=== PATIENT | male | born 1955 | race Caucasian/White ===

== ENCOUNTER 2018-07-06 09:46 | Emergency (ER) | payer MEDICARE, SELFPAY ==
[2018-07-06 09:56] VITALS: BP 152/81; PULSE 80; RESP 16; TEMP 36.9; O2SAT 99
[2018-07-06 10:16] LABS: Bilirubin Negative (Negative); Blood Negative (Negative); Clarity Clear; Glucose Negative (Negative); Ketones Negative (Negative); Leukocyte Esterase Negative (Negative); Nitrite Negative (Negative); Specific Gravity 1.015 (1.005-1.025); Urobilinogen 0.2 EU/dL (Up TO 0.2)
[2018-07-06 10:27] LABS: Bacteria Rare HPF (Negative); Epithelial Cells Negative HPF (Negative); Other Cells Negative (Negative); RBC 0-2 (0-2); WBC Negative HPF (0-5)
[2018-07-06 10:28] LABS: C & S Indicated? No; Casts Negative LPF (Negative); Crystals Negative HPF (Negative); Mucus Negative (Negative)
--- NOTE | 2018-07-06 10:55 | ED.GENADUL_ITS ---
Discharge Plan Disposition Patient Disposition: HOME Condition: Stable Discharge Details Chief Complaint: Nk/Back Pain Clinical Impression: Lumbar strain Primary Care Provider: Lena Donovan ED Provider: Hieu Brooke Home Meds and New Rx's Prescriptions: Continue nicotine 1 EACH patch 24 hour 1 ea Transdermal RF: 0 lisinopril 20 MG tablet 20 mg PO DAILY RF: 0 aspirin [Aspirin Low-Strength] 81 MG tablet,chewable 81 mg PO DAILY RF: 0 fenofibrate 54 MG tablet 54 mg PO DAILY RF: 0 vitamin U74-qpghl acid 500-400 mcg Tablet 1 tab PO DAILY RF: 0 Discharge Instructions Instructions: Low Back Strain (ED) Additional Instructions: you can take 1000mg tylenol and 600mg ibuprofen every 6 hours for pain as needed return to the emergency department if you have inability to urinate, high fevers or abdominal pain or weakness follow up with your primary care provider within 1-2 weeks especially if symptoms are not improving Discharge Data Discharge Physician: Hieu Brooke Medical Decision Making MDM Narrative Medical decision making narrative: 63 yo male comes in with 3 days of lower back pain. 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 Denies weakness, fevers, chills, ivdu, abd pain, difficulty urinating. Based on his exam today and history do not feel he is likely to have cauda equina or sea or other spinal cord pathology requiring emergent MRI. No abdominal pain and normal distal vascular exam so doubt emergent intrabdominal process such as appendicitis. I suspect the patient has a lumbar strain, less likely disc herniation. Will provide dosing for ibuprofen and tylenol and advised f/u with pcp and return precautions given Differential Diagnosis back strain, muscle spasm, disc herniation Lab Data Lab Results 07/06/18 Range/Units 10:08 Urine Color Yellow (Yellow) Urine Clarity Clear Urine pH 6.0 (5-8) Ur Specific [place] 1.015 (1.005-1.025) Urine Protein 100 H (Negative) mg/dL Urine Ketones Negative (Negative) mg/dL Urine Blood Negative (Negative) Urine Nitrite Negative (Negative) Urine Bilirubin Negative (Negative) Urine Urobilinogen 0.2 (Up TO 0.2) EU/dL Ur Leukocyte Esterase Negative (Negative) Urine RBC 0-2 (0-2) Urine WBC Negative (0-5) HPF Ur Epithelial Cells Negative (Negative) HPF Urine Crystals Negative (Negative) HPF Urine Bacteria Rare (Negative) HPF Urine Casts Negative (Negative) LPF Urine Mucus Negative (Negative) Urine Other Negative (Negative) Ur Culture Indicated? No Urine Glucose Negative (Negative) mg/dL HPI - General Adult General Mode of arrival: ambulatory . Date/Time Provider Initiated Documentation: 07/06/18 10:15 . Limitations to Documentation: no limitations . Information obtained by: patient . History of Present Illness 63 year old M presents to the emergency department with the chief complaint of back pain, described as moderate, with intensity rated at 4. Quality is described as aching, and is localized to the back. Patient reports no radiation. Patient started experiencing this day(s) (3) and it has been constant. No relieving factors improve symptom(s), No exacerbating factors reported . Patient notes no other symptoms.. Patient did receive the following treatments prior to arrival, none Related Data Home Medications Medication Instructions Recorded Confirmed aspirin [Aspirin Low-Strength] 81 mg PO DAILY tab-cap 12/08/15 07/06/18 fenofibrate 54 mg PO DAILY tab-cap 12/08/15 07/06/18 lisinopril 20 mg PO DAILY tab-cap 12/08/15 07/06/18 nicotine 1 ea TRANSDERMAL script 12/08/15 vitamin X70-vsoyd acid 1 tab PO DAILY 07/06/18 07/06/18 Allergies Allergy/AdvReac Type Severity Reaction Status Date / Time lovastatin Allergy Other (See Unverified 07/06/18 09:58 Comment) morphine Allergy aggitation Unverified 07/06/18 09:57 General Stated Complaint: Nk/Back Pain ALEX: 4 Review of Systems Review of Systems All systems reviewed & are unremarkable except as noted in HPI and below Constitutional Denies chills, Denies fever(s) and Denies weakness Eyes Patient Denies loss of vision ENT Denies change in voice Cardiovascular Denies chest pain and Denies dyspnea Respiratory Denies dyspnea Gastrointestinal Denies abdominal pain, Denies nausea and Denies vomiting Genitourinary Denies dysuria Musculoskeletal Denies joint swelling Integumentary/Breasts Denies rash Neurologic Denies loss of vision and Denies weakness Psychiatric Denies depression Endocrine Denies cold intolerance and Denies heat intolerance Allergic/Immunologic Reports urticaria [facility] Social History Smoking/Tobacco Use Status: Current every day Exam Const General: no acute distress Orientation: alert HENMT Head: normal to inspection Ears: external ears normal General nose exam: external nose normal Mouth: moist mucous membranes Eyes General: appearance normal, both eyes and all related structures Neck Neck: normal visual inspection Resp Effort & Inspection: normal respiratory effort and able to speak in complete sentences Cardio Rate: regular rate GI Palpation: soft and nontender Back/Spine/Pelvis Back: no CVA tenderness and other (pain bilaterally in the lower lumbar region, full rom of the back) Skin General skin exam: no rashes or lesions noted Neuro General: alert, oriented x3 and other (no saddle anesthesia, 5/5 motor in flexion and extension in both legs in all muscle groups, 2+ dp/pt pulses, normal gait) Extrem General: normal to inspection Psych Mental Status: mental status grossly normal Course Vital Signs Temperature 36.9 C 07/06/18 09:56 Pulse 80 07/06/18 09:56 Respiratory Rate 16 07/06/18 09:56 Blood Pressure 152/81 H 07/06/18 09:56 Pulse Oximetry 99 07/06/18 09:56 Temperature 36.9 C 07/06/18 09:56 Pulse 80 07/06/18 09:56 Respiratory Rate 16 07/06/18 09:56 Blood Pressure 152/81 H 07/06/18 09:56 Pulse Oximetry 99 07/06/18 09:56 Lab/Test Results Lab/Test Results: Laboratory Tests 07/06/18 10:08 Urine Color Yellow Urine Clarity Clear Urine pH 6.0 Ur Specific [place] 1.015 Urine Protein 100 H Urine Ketones Negative Urine Blood Negative Urine Nitrite Negative Urine Bilirubin Negative Urine Urobilinogen 0.2 Ur Leukocyte Esterase Negative Urine RBC 0-2 Urine WBC Negative Ur Epithelial Cells Negative Urine Crystals Negative Urine Bacteria Rare Urine Casts Negative Urine Mucus Negative Urine Other Negative Ur Culture Indicated? No Urine Glucose Negative
[2018-07-06 10:59] VITALS: BP 152/81; PULSE 80; RESP 16; TEMP 36.9; O2SAT 99
== END 2018-07-06 11:02 | disposition home or self-care (01) ==
PROVIDERS: Emergency Provider Emergency Medicine; PCP Physician Assistant Medical
DX: S39.012A Strain of muscle, fascia and tendon of lower back, initial encounter (principal); X50.0XXA Overexertion from strenuous movement or load, initial encounter
CPT/HCPCS: 99283; 81003; 81015; 99282

== ENCOUNTER 2018-07-17 07:35 | Emergency (ER) | payer MEDICARE, SELFPAY ==
[2018-07-17 07:40] VITALS: BP 149/88; PULSE 92; RESP 16; TEMP 36.6; O2SAT 99
--- NOTE | 2018-07-17 08:22 | DI.CT_ITS ---
SYMPTOM/DIAGNOSIS: ABD AND BACK PAIN, CONSTIPATION ABDOMEN AND PELVIC CT: CT scan of the abdomen and pelvis was performed following the uneventful administration of intravenous and oral contrast material. Comparison is made with 08/17/10. No acute abnormality is seen in the lung bases. The liver is normal in size. No evidence of a hepatic mass is seen. The portal and superior mesenteric veins are patent. The gallbladder is negative. No biliary ductal dilatation is present. The pancreas is unremarkable as are the spleen and adrenal glands. The kidneys show normal and symmetric enhancement. No evidence of a solid renal mass or obstruction is seen. No ureterolithiasis is present. The urinary bladder is intact. Reproductive organs are unremarkable. The abdominal aorta is of normal caliber. No aneurysmal dilatation is seen. No significant abdominal or pelvic adenopathy, ascites or pneumoperitoneum is present. Note is made of bilateral fat containing umbilical inguinal hernias. There is a moderate sized fat containing umbilical hernia and a small fat containing supraumbilical hernia in the midline. The bowel shows no evidence of obstruction or inflammation or infection. There is a normal appendix present. There are degenerative changes seen in the spine. No evidence of an acute fracture or dislocation. There is moderately severe neural foraminal stenosis bilaterally at L 4-5 on the left and L 3-4. More mild to moderate neural foraminal stenosis is seen on the right at L 2-3 and L 3-4. IMPRESSION: 1. No evidence of an acute abdomen, acute fracture or dislocation. 2. 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 The findings are most marked at the L 2-3, L 3-4 and L 4-5 disc levels. The findings were discussed with the emergency department on the date of the examination.
[2018-07-17 08:46] LABS: Abs Immature Grans 0.04 k/cumm (0.0-0.09); Absolute Basophil Count 0.03 k/cumm (0.0-0.2); Absolute Eosinophil Count 0.19 k/cumm (0.0-0.7); Absolute Lymphocyte Count 1.68 k/cumm (1.2-3.4); Basophils % 0.3; Eosinophils % 1.7; HCT 51.2 % (40.0-50.0); HGB 17.5 g/dL (13.5-17.5); Immature Grans % 0.4; Lymphocytes % 14.7; Mean Corp. HGB Concentration 34.2 g/dL (32.0-36.0); Mean Corpuscular Volume 87.7 fL (80-95); Mean Platelet Volume 9.9 fL (8.0-11.0); Neutrophils % 75.9; Platelet Count 383 x1000/uL (130-400); RBC 5.84 m/cumm (4.50-6.00); RBC Distribution Width 13.3 % (11.8-14.1)
[2018-07-17 08:48] LABS: Absolute Neutrophil Count 8.65 k/cumm (1.2-6.7)
[2018-07-17] MEDS: Lactated Ringers 1,000 ML 1000 ML IV (08:48)
[2018-07-17 09:24] LABS: ALT 23 U/L (12-78); AST 21 U/L (15-37); Albumin 4.4 g/dL (3.4-5.0); Alkaline Phosphatase 67 U/L (46-116); Anion Gap 5.9 mmol/L (3-11); BUN 17 mg/dL (7-18); Bilirubin, Total 0.6 mg/dL (0.2-1.0); CO2 30.1 mmol/L (21.0-32.0); CREATININE 1.32 mg/dL (0.70-1.30); Calcium 9.7 mg/dL (8.5-10.1); Chloride 96 mmol/L (98-107); Estimated GFR 54.78 (mL/min/1.73m2); Glucose 109 mg/dL (70-100); Sodium 132 mmol/L (136-145)
[2018-07-17] MEDS: Omnipaque 350 MG/ML 100 ML BTL IV (09:37)
--- NOTE | 2018-07-17 10:10 | W.ED.GENAD ---
Discharge Plan Disposition Patient Disposition: HOME Discharge Details Chief Complaint: GenMedical Clinical Impression: Constipation, Low back pain Primary Care Provider: Lena Donovan ED Provider: Robb Ayala Home Meds and New Rx's Prescriptions: New mineral oil [Fleet Mineral Oil] enema 118 ml [place] ONCE Qty: 135 RF: 2 lidocaine 5 % adhesive patch,medicated 1 patch TP DAILY PRN (Reason: back pain) Qty: 15 RF: 0 Continue lisinopril 20 MG tablet 20 mg PO DAILY RF: 0 aspirin [Aspirin Low-Strength] 81 MG tablet,chewable 81 mg PO DAILY RF: 0 fenofibrate 54 MG tablet 54 mg PO DAILY RF: 0 metoprolol tartrate 25 mg Tablet 12.5 mg PO DAILY RF: 0 vitamin E34-lgrix acid 500-400 mcg Tablet 1 tab PO DAILY RF: 0 Discharge Instructions Instructions: Constipation (ED), Low Back Strain (ED) Additional Instructions: Use enema as prescribed. Take Tylenol and ibuprofen for discomfort --does according to labels. Use a squatty potty for bowel movements. Please contact your primary care physician to arrange follow-up. Call today. Return to the ER for any worsening or new concerning symptoms. Referrals: Lena Donovan PA [Primary Care Provider] - Medical Decision Making 10:25 --63-year-old male presents with chief complaint of bilateral low back pain and constipation. Concern for potential surgical process including bowel obstruction versus AAA. CT the abdomen pelvis interpreted by radiology: Moderate stool with no stool in his rectal vault, no obstruction, degenerative changes of the lumbar spine with some neuroforaminal stenosis, no acute findings . Labs were reviewed and are nondiagnostic. 10:40 --patient reassessed. We discussed diagnostic results. Will give Tylenol and lidocaine patch for low back pain. Usual and customary discharge instructions were provided the patient. Patient understands importance of timely follow-up with his primary care physician and I encouraged him to call today to arrange this follow-up. Patient knows that he should return immediately to the ER should he have any worsening or new concerning symptoms HPI General Mode of arrival: ambulatory. Date/Time Provider Initiated Documentation: 07/17/18 08:08. Limitations to Documentation: no limitations. Information obtained by: patient. HPI Narrative: 63-year-old male with history of coronary artery disease status post CABG, presents with chief complaint of back pain. Patient notes bilateral lower back pain for the past 3-4 days. Patient attributes this pain to constipation. Patient notes he does have some discomfort in his abdomen but most of his discomfort is localized in his back. He has not had a regular bowel movement for some time. He has been using stool softeners suppository without complete relief. Pain is severe. Described as ache and gassy. Of note patient was seen here on 07/06/2018 for similar presentation and thought possibly to have low back strain. Related Data Home Medications Medication Instructions Recorded Confirmed aspirin [Aspirin Low-Strength] 81 mg PO DAILY tab-cap 12/08/15 07/17/18 fenofibrate 54 mg PO DAILY tab-cap 12/08/15 07/17/18 lisinopril 20 mg PO DAILY tab-cap 12/08/15 07/17/18 vitamin S59-ywtch acid 1 tab PO DAILY 07/06/18 07/17/18 metoprolol tartrate 12.5 mg PO DAILY 07/17/18 07/17/18 Previous Rx's Medication Instructions Recorded lidocaine 1 patch TP DAILY PRN #15 each 07/17/18 mineral oil [Fleet Mineral Oil 118 ml [place] ONCE #135 ml 07/17/18 enema] Allergies Allergy/AdvReac Type Severity Reaction Status Date / Time lovastatin Allergy Other (See Unverified 07/06/18 09:58 Comment) morphine Allergy aggitation Unverified 07/06/18 09:57 General Stated Complaint: GenMedical ALEX: 3 Review of Systems Review of Systems All systems reviewed & are unremarkable except as noted in HPI and below Cardiovascular Reports system reviewed and no additional complaints, except as docu Respiratory Reports system reviewed and no additional complaints, except as docu Gastrointestinal Reports as per HPI [facility] Medical History Coronary artery disease (Chronic) Social History Smoking/Tobacco Use Status: Current every day Exam Const General: cooperative, comfortable, no acute distress and other (Uncomfortable appearing) HENMT Head: normocephalic and atraumatic Mouth: moist mucous membranes Eyes Conjunctivae: normal conjunctivae Sclera: normal sclerae EOM: EOM intact bilaterally Neck Neck: trachea midline and supple Resp Auscultation: clear to auscultation bilaterally, no rales, no rhonchi and no wheezes Cardio Jugular venous pressure: no JVD Rate: regular rate and not tachycardic Rhythm: regular rhythm GI Palpation: soft, not firm, no guarding, no masses, not rigid and nontender Skin General skin exam: no rashes or lesions noted Neuro General: alert, awake, oriented x3 and tone normal Extrem General: no edema Psych Appearance: grossly normal Mental Status: mental status grossly normal Speech and Movement: speech and movement normal Course Vital Signs Temperature 36.6 C 07/17/18 07:40 Pulse 92 H 07/17/18 07:40 Respiratory Rate 16 07/17/18 07:40 Blood Pressure 149/88 H 07/17/18 07:40 Pulse Oximetry 99 07/17/18 07:40 Temperature 36.6 C 07/17/18 07:40 Pulse 92 H 07/17/18 07:40 Respiratory Rate 16 07/17/18 07:40 Blood Pressure 149/88 H 07/17/18 07:40 Pulse Oximetry 99 07/17/18 07:40 Lab/Test Results Lab/Test Results: Laboratory Tests 07/17/18 07/17/18 07/17/18 08:30 08:30 09:05 WBC 11.40 H RBC 5.84 Hgb 17.5 Hct 51.2 H MCV 87.7 MCH 30.0 MCHC 34.2 RDW 13.3 Plt Count 383 MPV 9.9 Immature Gran % 0.4 Neutrophils % 75.9 Lymphocytes % 14.7 Monocytes % 7.0 Eosinophils % 1.7 Basophils % 0.3 Absolute Neutrophils 8.65 H Absolute Lymphocytes 1.68 Absolute Monocytes 0.80 H Absolute Eosinophils 0.19 Absolute Basophils 0.03 Sodium Cancelled 132 L Potassium Cancelled 5.0 Chloride Cancelled 96 L Carbon Dioxide Cancelled 30.1 Anion Gap Cancelled 5.9 BUN Cancelled 17 Creatinine Cancelled 1.32 H Estimated GFR/1.73 m2 Cancelled 54.78 Glucose Cancelled 109 H Calcium Cancelled 9.7 Total Bilirubin Cancelled 0.6 AST Cancelled 21 ALT Cancelled 23 Alkaline Phosphatase Cancelled 67 Total Protein Cancelled 8.0 Albumin Cancelled 4.4
--- NOTE | 2018-07-17 10:26 | ED.GENADUL_ITS ---
Discharge Plan Disposition Patient Disposition: HOME Discharge Details Chief Complaint: GenMedical Clinical Impression: Constipation, Low back pain Primary Care Provider: Lena Donovan ED Provider: Robb Ayala Home Meds and New Rx's Prescriptions: New mineral oil [Fleet Mineral Oil] enema 118 ml [place] ONCE Qty: 135 RF: 2 lidocaine 5 % adhesive patch,medicated 1 patch TP DAILY PRN (Reason: back pain) Qty: 15 RF: 0 Continue lisinopril 20 MG tablet 20 mg PO DAILY RF: 0 aspirin [Aspirin Low-Strength] 81 MG tablet,chewable 81 mg PO DAILY RF: 0 fenofibrate 54 MG tablet 54 mg PO DAILY RF: 0 metoprolol tartrate 25 mg Tablet 12.5 mg PO DAILY RF: 0 vitamin F73-dqefw acid 500-400 mcg Tablet 1 tab PO DAILY RF: 0 Discharge Instructions Instructions: Constipation (ED), Low Back Strain (ED) Additional Instructions: Use enema as prescribed. Take Tylenol and ibuprofen for discomfort --does according to labels. Use a squatty potty for bowel movements. Please contact your primary care physician to arrange follow-up. Call today. Return to the ER for any worsening or new concerning symptoms. Referrals: Lena Donovan PA [Primary Care Provider] - Medical Decision Making 10:25 --63-year-old male presents with chief complaint of bilateral low back pain and constipation. Concern for potential surgical process including bowel obstruction versus AAA. CT the abdomen pelvis interpreted by radiology: Moderate stool with no stool in his rectal vault, no obstruction, degenerative changes of the lumbar spine with some neuroforaminal stenosis, no acute findings . Labs were reviewed and are nondiagnostic. 10:40 --patient reassessed. We discussed diagnostic results. Will give Tylenol and lidocaine patch for low back pain. Usual and customary discharge instructions were provided the patient. Patient understands importance of timely follow-up with his primary care physician and I encouraged him to call today to arrange this follow-up. Patient knows that he should return immediately to the ER should he have any worsening or new concerning symptoms HPI General Mode of arrival: ambulatory . Date/Time Provider Initiated Documentation: 07/17/18 08:08 . Limitations to Documentation: no limitations . Information obtained by: patient . HPI Narrative: 63-year-old male with history of coronary artery disease status post CABG, presents with chief complaint of back pain. Patient notes bilateral lower back pain for the past 3-4 days. Patient attributes this pain to constipation. Patient notes he does have some discomfort in his abdomen but most of his discomfort is localized in his back. He has not had a regular bowel movement for some time. He has been using stool softeners suppository without complete relief. Pain is severe. Described as ache and gassy. Of note patient was seen here on 07/06/2018 for similar presentation and thought possibly to have low back strain. Related Data Home Medications Medication Instructions Recorded Confirmed aspirin [Aspirin Low-Strength] 81 mg PO DAILY tab-cap 12/08/15 07/17/18 fenofibrate 54 mg PO DAILY tab-cap 12/08/15 07/17/18 lisinopril 20 mg PO DAILY tab-cap 12/08/15 07/17/18 vitamin K04-aemdc acid 1 tab PO DAILY 07/06/18 07/17/18 metoprolol tartrate 12.5 mg PO DAILY 07/17/18 07/17/18 Previous Rx's Medication Instructions Recorded lidocaine 1 patch TP DAILY PRN #15 each 07/17/18 mineral oil [Fleet Mineral Oil 118 ml [place] ONCE #135 ml 07/17/18 enema] Allergies Allergy/AdvReac Type Severity Reaction Status Date / Time lovastatin Allergy Other (See Unverified 07/06/18 09:58 Comment) morphine Allergy aggitation Unverified 07/06/18 09:57 General Stated Complaint: GenMedical ALEX: 3 Review of Systems Review of Systems All systems reviewed & are unremarkable except as noted in HPI and below Cardiovascular Reports system reviewed and no additional complaints, except as docu Respiratory Reports system reviewed and no additional complaints, except as docu Gastrointestinal Reports as per HPI [facility] Medical History Coronary artery disease (Chronic) Social History Smoking/Tobacco Use Status: Current every day Exam Const General: cooperative, comfortable, no acute distress and other (Uncomfortable appearing) HENMT Head: normocephalic and atraumatic Mouth: moist mucous membranes Eyes Conjunctivae: normal conjunctivae Sclera: normal sclerae EOM: EOM intact bilaterally Neck Neck: trachea midline and supple Resp Auscultation: clear to auscultation bilaterally, no rales, no rhonchi and no wheezes Cardio Jugular venous pressure: no JVD Rate: regular rate and not tachycardic Rhythm: regular rhythm GI Palpation: soft, not firm, no guarding, no masses, not rigid and nontender Skin General skin exam: no rashes or lesions noted Neuro General: alert, awake, oriented x3 and tone normal Extrem General: no edema Psych Appearance: grossly normal Mental Status: mental status grossly normal Speech and Movement: speech and movement normal Course Vital Signs Temperature 36.6 C 07/17/18 07:40 Pulse 92 H 07/17/18 07:40 Respiratory Rate 16 07/17/18 07:40 Blood Pressure 149/88 H 07/17/18 07:40 Pulse Oximetry 99 07/17/18 07:40 Temperature 36.6 C 07/17/18 07:40 Pulse 92 H 07/17/18 07:40 Respiratory Rate 16 07/17/18 07:40 Blood Pressure 149/88 H 07/17/18 07:40 Pulse Oximetry 99 07/17/18 07:40 Lab/Test Results Lab/Test Results: Laboratory Tests 07/17/18 07/17/18 07/17/18 08:30 08:30 09:05 WBC 11.40 H RBC 5.84 Hgb 17.5 Hct 51.2 H MCV 87.7 MCH 30.0 MCHC 34.2 RDW 13.3 Plt Count 383 MPV 9.9 Immature Gran % 0.4 Neutrophils % 75.9 Lymphocytes % 14.7 Monocytes % 7.0 Eosinophils % 1.7 Basophils % 0.3 Absolute Neutrophils 8.65 H Absolute Lymphocytes 1.68 Absolute Monocytes 0.80 H Absolute Eosinophils 0.19 Absolute Basophils 0.03 Sodium Cancelled 132 L Potassium Cancelled 5.0 Chloride Cancelled 96 L Carbon Dioxide Cancelled 30.1 Anion Gap Cancelled 5.9 BUN Cancelled 17 Creatinine Cancelled 1.32 H Estimated GFR/1.73 m2 Cancelled 54.78 Glucose Cancelled 109 H Calcium Cancelled 9.7 Total Bilirubin Cancelled 0.6 AST Cancelled 21 ALT Cancelled 23 Alkaline Phosphatase Cancelled 67 Total Protein Cancelled 8.0 Albumin Cancelled 4.4
[2018-07-17 10:29] VITALS: BP 177/90; PULSE 79; RESP 17; TEMP 36.4; O2SAT 100
[2018-07-17] MEDS: Acetaminophen 325 MG TAB 650 MG PO (11:02)
[2018-07-17] MEDS: Lidocaine 5% Patch 1 PATCH (11:03)
== END 2018-07-17 11:03 | disposition home or self-care (01) ==
PROVIDERS: Emergency Provider Student in an Organized Health Care Education/Training Program; PCP Physician Assistant Medical
DX: K59.00 Constipation, unspecified (principal); M54.5 Low back pain; I10 Essential (primary) hypertension
CPT/HCPCS: 36415; 80053; 96360; 99284; 74177; 85025; J3490

== ENCOUNTER 2019-07-28 09:52 | Outpatient (REF) | payer MEDICARE, SELFPAY ==
[2019-07-28 20:32] LABS: ALT 24 U/L (16-63); AST 25 U/L (15-37); Albumin 3.8 g/dL (3.4-5.0); Alkaline Phosphatase 72 U/L (46-116); Anion Gap 11.1 mmol/L (3-11); BUN 20 mg/dL (7-18); Bilirubin, Total 0.3 mg/dL (0.2-1.0); CO2 26.9 mmol/L (21.0-32.0); Calcium 9.4 mg/dL (8.5-10.1); Chloride 98 mmol/L (98-107); Estimated GFR 51.02 (mL/min/1.73m2); Glucose 100 mg/dL (70-100); HDL Cholesterol 54 mg/dL (40-60); LDL CHOLESTEROL 152 mg/dL (<100); Potassium 4.8 mmol/L (3.5-5.1); Sodium 136 mmol/L (136-145)
[2019-07-28 21:00] LABS: Creatine Kinase 156 U/L (39-308)
== END 2019-07-28 10:12 ==
LOC: NCHCO 09:52
PROVIDERS: PCP Nurse Practitioner Family; Visit Provider Nurse Practitioner Family
DX: I10 Essential (primary) hypertension (principal); E78.00 Pure hypercholesterolemia, unspecified; I73.9 Peripheral vascular disease, unspecified; F17.210 Nicotine dependence, cigarettes, uncomplicated; Z95.1 Presence of aortocoronary bypass graft
CPT/HCPCS: 80053; 82550; 83721; 83718

== ENCOUNTER 2019-11-15 09:35 | Outpatient (REF) | payer MEDICARE, SELFPAY ==
[2019-11-15 22:01] LABS: Calculated LDL 106 mg/dL; Cholesterol 175 mg/dL (<200); HDL Cholesterol 58 mg/dL (40-60); Triglyceride 59 mg/dL (<150)
== END 2019-11-15 09:55 ==
LOC: NCHCN 09:35
PROVIDERS: PCP Nurse Practitioner Family; Visit Provider Nurse Practitioner Family
DX: I70.90 Unspecified atherosclerosis (principal)
CPT/HCPCS: 80061

== ENCOUNTER 2020-05-08 00:35 | Outpatient (CLI) | payer MEDICARE, SELFPAY ==
--- NOTE | 2020-05-08 | DI.CTLCSR_ITS ---
EXAM: CT CHEST LUNG CANCER SCREEN CLINICAL HISTORY: The patient reportedly has a History of Smoking 30 pack years and presently smokes or has quit the past 15 years. TECHNIQUE: Imaging Protocol: Axial computed tomography images with coronal and sagittal reformatted images were created and reviewed COMPARISON: CT CHEST WITH CONTRAST from 12/30/2017 FINDINGS: Tracheobronchial tree: Patent where visualized. Mediastinum and Janice: No dominant adenopathy or fluid collection. Pulmonary parenchyma: No consolidation or dominant measurable mass. No architectural distortion. Lung Nodules: None. Pleura: No effusion or pneumothorax. Heart: The heart is not dilated. Coronary artery calcifications and/or vascular stents are present. Pericardial effusion. Aorta: Thoracic aorta non-dilated. Upper abdomen: Unremarkable. Bones: Sternal wires are in place. Degenerative changes are seen in the spine. Old right rib fractu res are present. Soft Tissues: Unremarkable. IMPRESSION: No pulmonary nodules. Lung RADS Cat 1 - Negative: No nodules and definitely benign nodules Lung-RADS 1.0 CATEGORIES: Category 0 - Prior chest CT exam(s) being located for comparison. Category 1 - Annual screening in 12 months. No nodules or definitely benign nodules. Category 2 - Annual screening in 12 months. Benign appearance. Nodules with low likelihood of becomin g active cancer. Category 3 - 6-month follow-up. Probably benign. Short-term follow-up suggested. Nodules with low lik elihood of becoming active cancer. Category 4A - 3-month follow-up and CT/PET if >8 mm in size. Suspicious finding. Findings which requi re additional testing. Category 4B - Findings which require additional testing and tissue sampling. Suspicious finding. C Added to Any of the Above - History of prior lung cancer screening. S Added to Any of the Above - Significant unexpected other finding. RADIATION DOSE DELIVERED: Total DLP DATA REPOSITORY: All CT scans at this facility are submitted to the National Radiology Data Registry (NRDR) Dose Index Registry (DIR) with the [employer] (ACR). RADIATION OPTIMIZATION: All CT scans at this facility use at least one of these dose optimization te chniques: automated exposure control; mA and/or kV adjustment per patient size (includes targeted exa ms where dose is matched to clinical indication); or iterative reconstruction.
== END 2020-05-08 00:55 ==
PROVIDERS: PCP Nurse Practitioner Family; Visit Provider Nurse Practitioner Family
DX: Z12.2 Encounter for screening for malignant neoplasm of respiratory organs (principal); F17.210 Nicotine dependence, cigarettes, uncomplicated
CPT/HCPCS: G0297

== ENCOUNTER 2020-05-29 09:38 | Outpatient (REF) | payer MEDICARE, SELFPAY ==
[2020-05-29 19:20] LABS: Anion Gap 9.8 mmol/L (3-11); BUN 17 mg/dL (7-18); CO2 26.2 mmol/L (21.0-32.0); CREATININE 1.38 mg/dL (0.70-1.30); Calcium 9.8 mg/dL (8.5-10.1); Chloride 99 mmol/L (98-107); Estimated GFR 51.71 (mL/min/1.73m2); Glucose 98 mg/dL (74-106); Potassium 5.2 mmol/L (3.5-5.1); Sodium 135 mmol/L (136-145)
== END 2020-05-29 09:58 ==
LOC: NCHCN 09:38
PROVIDERS: PCP Nurse Practitioner Family; Visit Provider Nurse Practitioner Family
DX: E87.1 Hypo-osmolality and hyponatremia (principal)
CPT/HCPCS: 80048

== ENCOUNTER 2020-11-01 12:02 | Outpatient (REF) | payer OTHER, MEDICARE, SELFPAY ==
[2020-11-01 18:42] LABS: ALT 27 U/L (16-63); AST 23 U/L (15-37); Anion Gap 8.8 mmol/L (3-11); BUN 21 mg/dL (7-18); CO2 28.2 mmol/L (21.0-32.0); CREATININE 1.42 mg/dL (0.70-1.30); Calcium 9.8 mg/dL (8.5-10.1); Calculated LDL 111 mg/dL (<100); Chloride 98 mmol/L (98-107); Cholesterol 191 mg/dL (<200); Estimated GFR 50.04 (mL/min/1.73m2); Glucose 119 mg/dL (74-106); HDL Cholesterol 57 mg/dL (40-60); Potassium 5.4 mmol/L (3.5-5.1); Sodium 135 mmol/L (136-145); Triglyceride 115 mg/dL (<150)
[2020-11-01 19:09] LABS: Creatine Kinase 194 U/L (39-308)
== END 2020-11-01 12:22 ==
LOC: NCHCN 12:02
PROVIDERS: PCP Nurse Practitioner Family; Visit Provider Nurse Practitioner Family
DX: E78.00 Pure hypercholesterolemia, unspecified (principal)
CPT/HCPCS: 80048; 80061; 82550; 84450; 84460

== ENCOUNTER 2020-12-25 16:14 | Outpatient (REF) | payer OTHER, SELFPAY ==
[2020-12-25 15:38] LABS: Anion Gap 2.7 mmol/L (3-11); BUN 17 mg/dL (7-18); CO2 30.3 mmol/L (21.0-32.0); CREATININE 1.4 mg/dL (0.70-1.30); Calcium 9.7 mg/dL (8.5-10.1); Chloride 101 mmol/L (98-107); Estimated GFR 50.86 (mL/min/1.73m2); Glucose 86 mg/dL (74-106); Potassium 5.5 mmol/L (3.5-5.1); Sodium 134 mmol/L (136-145)
== END 2020-12-25 16:15 | disposition home or self-care (01) ==
LOC: NCHCN 16:14
PROVIDERS: PCP Nurse Practitioner Family; Visit Provider Nurse Practitioner Family
DX: I10 Essential (primary) hypertension (principal)
CPT/HCPCS: 80048

== ENCOUNTER 2021-01-15 01:59 | Outpatient (CLI) | payer OTHER, SELFPAY ==
--- NOTE | 2021-01-15 | DI.US_ITS ---
EXAM: US CAROTID CLINICAL HISTORY: ARTERIOSCLEROSIS,I70.90,HYPERCHOLESTEROLEMIA, E78.0,SMOKER, HYPERTENSION,. TECHNIQUE: Ultrasound carotids performed using grayscale, color-flow, and spectral Doppler imaging. COMPARISON: US CAROTID ULTRASOUND from 05/27/2017 FINDINGS: RIGHT CAROTID ARTERY: Plaque: Significant Velocity elevation: Yes LEFT CAROTID ARTERY: Plaque: There is severe plaque in the left common carotid artery and bulb. Velocity elevation: Yes VERTEBRAL ARTERIES: Antegrade flow. Measurements: R Bulb: 90.4cm/s PS / 24.6cm/s ED R CCA: 114cm/s PS / 27.3cm/s ED R ECA: 89.2cm/s PS / 21.3cm/s ED R ICA Prox: 119.8cm/s PS /24cm/s ED R ICA Mid: 83.5cm/s PS / 24cm/s ED R ICA Distal: 94.4cm/s PS /35.3cm/s ED R Vert: 30.5cm/s PS / 8.8cm/s ED R SVR: 0.92 R DVR: 0.62 L Bulb: 277.6cm/s PS /81cm/s ED L CCA: 416.5cm/s PS / 135.9cm/s ED L ECA: 180.1cm/s PS /43.1cm/s ED L ICA Prox:140cm/s PS / 45.1cm/s ED L ICA Mid: 89.7cm/sPS / 33.7cm/s ED L ICA Distal: 70.6cm/s PS / 33.8cm/s ED L Vert: 60.5cm/s PS / 26.1cm/s ED L SVR: 0.34 L DVR: 0.33 IMPRESSION: Significant bilateral atherosclerotic disease in the carotid arteries. There is plaque throughout both common carotid arteries, more prominent on the left side where there are velocities up to 417/136 indicating a high-grade stenosis in the distal left common carotid arter y just below the bulb. Stenosis greater than 70 percent at this level. There is also stenosis in the bulb and proximal left internal carotid artery estimated at approximate ly 50-69 percent. Plaque also seen at similar locations on the right side in the right common carotid artery and proxim al internal carotid artery with estimated stenosis less than 50 percent on the right side. There is antegrade flow evident in both vertebral arteries. Criteria for Carotid Stenosis: Normal: ICA PSV <125 cm/s no plaque or intimal thickening is visible. <50% stenosis: ICA PSV <125 cm/s and plaque or intimal thickening is visible. 50-69% stenosis: ICA PSV is 125-250 cm/s and plaque is visible. >70% stenosis to near occlusion: ICA PSV >250 cm/s with visible plaque and luminal narrowing. DATA REPOSITORY:
== END 2021-01-15 02:19 ==
PROVIDERS: PCP Nurse Practitioner Family; Visit Provider Nurse Practitioner Family
DX: I65.23 Occlusion and stenosis of bilateral carotid arteries (principal); E78.00 Pure hypercholesterolemia, unspecified; F17.210 Nicotine dependence, cigarettes, uncomplicated
CPT/HCPCS: 93880

== ENCOUNTER 2021-03-12 08:47 | Outpatient (REF) | payer OTHER, SELFPAY ==
[2021-03-12 16:27] LABS: ALT 29 U/L (16-63); AST 22 U/L (15-37); Calculated LDL 108 mg/dL (<100); Cholesterol 184 mg/dL (<200); HDL Cholesterol 60 mg/dL (40-60); Triglyceride 82 mg/dL (<150)
[2021-03-12 16:57] LABS: Creatine Kinase 418 U/L (39-308)
== END 2021-03-12 08:48 | disposition home or self-care (01) ==
LOC: NCHCN 08:47
PROVIDERS: PCP Nurse Practitioner Family; Visit Provider Nurse Practitioner Family
DX: I10 Essential (primary) hypertension (principal); E78.00 Pure hypercholesterolemia, unspecified; M79.18 Myalgia, other site
CPT/HCPCS: 80061; 82550; 84450; 84460

== ENCOUNTER 2021-05-02 12:52 | Outpatient (REF) | payer OTHER, SELFPAY ==
[2021-05-02 15:20] LABS: ALT 23 U/L (16-63); AST 19 U/L (15-37); Anion Gap 8.9 mmol/L (3-11); BUN 22 mg/dL (7-18); CO2 27.1 mmol/L (21.0-32.0); CREATININE 1.5 mg/dL (0.70-1.30); Calcium 10.5 mg/dL (8.5-10.1); Chloride 100 mmol/L (98-107); Estimated GFR 46.82 (mL/min/1.73m2); Glucose 110 mg/dL (74-106); HDL Cholesterol 51 mg/dL (40-60); LDL CHOLESTEROL 159 mg/dL (<100); Potassium 5.7 mmol/L (3.5-5.1); Sodium 136 mmol/L (136-145)
[2021-05-02 15:46] LABS: Creatine Kinase 160 U/L (39-308)
== END 2021-05-02 12:53 | disposition home or self-care (01) ==
LOC: NCHCN 12:52
PROVIDERS: PCP Nurse Practitioner Family; Visit Provider Nurse Practitioner Family
DX: I65.29 Occlusion and stenosis of unspecified carotid artery (principal); E78.00 Pure hypercholesterolemia, unspecified; I70.90 Unspecified atherosclerosis
CPT/HCPCS: 80048; 82550; 83721; 83718; 84450; 84460

== ENCOUNTER 2021-05-10 01:33 | Outpatient (CLI) | payer OTHER, SELFPAY ==
--- NOTE | 2021-05-10 | DI.CTLCSR_ITS ---
Exam(s) CT CHEST LUNG CANCER SCREEN EXAM: CT CHEST LUNG CANCER SCREEN CLINICAL HISTORY: SCREENING FOR LUNG CA, CURRENT SMOKER,Z12.9. TECHNIQUE: Imaging Protocol: Low Dose Technique CONTRAST MATERIAL: None COMPARISON: CT CHEST WITH CONTRAST from 11/22/2015 CT CHEST WITH CONTRAST from 12/30/[address] ABDOMEN PELVIS W from 07/17/[address] CHEST LUNG CANCER SCREEN from 05/08/2020 FINDINGS: CHEST: LUNGS: There is a 6 x 5 millimeter noncalcified nodule in anterior basal segment of the left lower lo be, unchanged from April 2020. This nodule also appears to have been present on the uppermost images of an abdominal CT scan performed June 2018 and is therefore most probably benign.. This nodule is also previously present on chest CT scan of October 2015. No other left lung nodules nor pleural effusion. In the opposite-right lung there are mild subpleural increased markings in the sub apical aspect of t he right upper lobe, more evident than on prior studies. There are no other significant focal findin gs in the right upper lobe and there are no significant no significant focal findings in the right th e no are no. There are no significant focal findings in the trachea and mainstem bronchi. There are no pleural effusions. Findings in the right middle lobe.. MEDIASTINUM: There is no obvious hilar nor mediastinal adenopathy. CARDIAC: Heart size is normal. There is no pericardial effusion.Sternotomy wires are again noted as is evidence of previous surgery. Coronary artery calcification is again noted. OTHER: Healed right-sided rib fractures are noted. OSSEOUS: No significant osseous lesions.. IMPRESSION: 1. Stable 6 x 5 millimeter left lung lower lobe nodule, unchanged from at least October 2015 and ther efore benign. 2. Mild increased markings in the sub apical aspect of the right upper lobe now evident. These prese ntly has benign appearance. No pleural effusions nor obvious intrathoracic adenopathy. Recommend si x-month follow-up noninfused CT scan. Cardiac findings as above. 3. Lung RADS Cat 3 - Probably Benign: Probably benign finding(s) - short term follow-up suggested; in clude nodules with a low likelihood of becoming a clinically active cancer. Lung-RADS 1.0 CATEGORIES: Category 0 - Prior chest CT exam(s) being located for comparison. Category 1 - Annual screening in 12 months. No nodules or definitely benign nodules. Category 2 - Annual screening in 12 months. Benign appearance. Nodules with low likelihood of becomin g active cancer. Category 3 - 6-month follow-up. Probably benign. Short-term follow-up suggested. Nodules with low lik elihood of becoming active cancer. Category 4A - 3-month follow-up and CT/PET if >8 mm in size. Suspicious finding. Findings which requi re additional testing. Category 4B - Findings which require additional testing and tissue sampling. Modifier S- Potentially clinically significant findings (non lung cancer) RADIATION DOSE DELIVERED: 69.18mGy.cm Total DLP 1.84mGy CTDIvol DATA REPOSITORY: All CT scans at this facility are submitted to the National Radiology Data Registry (NRDR) Dose Index Registry (DIR) with the [employer] (A[employer]). RADIATION OPTIMIZATION: All CT scans at this facility use at least one of these dose optimization te chniques: automated exposure control; mA and/or kV adjustment per patient size (includes targeted exa ms where dose is matched to clinical indication); or iterative reconstruction.
== END 2021-05-10 01:53 ==
PROVIDERS: PCP Nurse Practitioner Family; Visit Provider Nurse Practitioner Family
DX: Z12.2 Encounter for screening for malignant neoplasm of respiratory organs (principal); R91.1 Solitary pulmonary nodule; R91.8 Other nonspecific abnormal finding of lung field; F17.210 Nicotine dependence, cigarettes, uncomplicated
CPT/HCPCS: 71271

== ENCOUNTER → 2021-10-25 02:17 | Outpatient (CLI) | payer OTHER, SELFPAY ==
--- NOTE | 2021-10-25 08:24 | DI.CT_ITS ---
Exam(s) CT CHEST WO EXAM: CT CHEST WO CLINICAL HISTORY: F/U LUNG NODULE,R91.8. TECHNIQUE: Multi planar reconstructions were performed. CONTRAST MATERIAL: None COMPARISON: CT CT CHEST LUNG CANCER SCREEN from 05/10/2021 FINDINGS: CHEST: LUNGS: Increased subpleural markings in the sub apical aspect of the right upper lobe are unchanged. There is a 4 millimeter nodular density in the right upper lobe also noted, difficult to determine i f this is small nodule or just decussation of vessels. Appears unchanged from the prior study. No n ew discrete focal right lung findings and no pleural effusions. In the opposite-left lung the previously described 6 millimeter left lower lobe nodule remains unchan ged. No new discrete left lung findings. No new findings in the trachea and mainstem bronchi. MEDIASTINUM: There is no obvious hilar nor mediastinal adenopathy. Visualized thyroid unremarkable.No obvious axillary adenopathy CARDIAC: Sternotomy with nonunion. Normal heart size. CABG. Heavy coronary artery calcification ag ain noted. Caliber thoracic aorta is within normal limits.No pericardial effusion. VISUALIZED UPPER ABDOMEN:No adrenal masses. Spleen size normal. OSSEOUS: No significant osseous lesions.Healed right-sided rib fractures are again noted. No acute f ractures evident.. IMPRESSION: 1. No significant change compared to the CT scan of April 2021. Again noted is a stable 6 millimeter left lower lobe nodule which is unchanged from at least October 2015 and therefore benign. 2. The previously described mild increased sub apical markings in the right upper lobe are unchanged from April 2021. No associated pleural effusions nor intrathoracic adenopathy. 3. Sternotomy nonunion. Normal heart size. No pericardial effusion. RADIATION DOSE DELIVERED: 537.29mGy.cm Total DLP DATA REPOSITORY: All CT scans at this facility are submitted to the National Radiology Data Registry (NRDR) Dose Index Registry (DIR) with the [employer] (ACR). RADIATION OPTIMIZATION: All CT scans at this facility use at least one of these dose optimization te chniques: automated exposure control; mA and/or kV adjustment per patient size (includes targeted exa ms where dose is matched to clinical indication); or iterative reconstruction.
== END ==
PROVIDERS: PCP Nurse Practitioner Family; Visit Provider Nurse Practitioner Family
DX: R91.1 Solitary pulmonary nodule (principal); J98.4 Other disorders of lung; R91.8 Other nonspecific abnormal finding of lung field; Z95.1 Presence of aortocoronary bypass graft
CPT/HCPCS: 71250

== ENCOUNTER 2021-10-29 13:21 | Outpatient (REF) | payer OTHER, SELFPAY ==
[2021-10-29 14:50] LABS: ALT 25 U/L (16-63); AST 20 U/L (15-37); Anion Gap 7.6 mmol/L (3-11); BUN 20 mg/dL (7-18); CO2 29.4 mmol/L (21.0-32.0); CREATININE 1.5 mg/dL (0.70-1.30); Calcium 9.5 mg/dL (8.5-10.1); Calculated LDL 169 mg/dL (<100); Chloride 98 mmol/L (98-107); Cholesterol 248 mg/dL (<200); Estimated GFR 46.82 (mL/min/1.73m2); Glucose 96 mg/dL (74-106); HDL Cholesterol 54 mg/dL (40-60); Potassium 5.3 mmol/L (3.5-5.1); Sodium 135 mmol/L (136-145); Triglyceride 127 mg/dL (<150)
[2021-10-29 15:01] LABS: Creatine Kinase 167 U/L (39-308)
== END 2021-10-29 13:22 | disposition home or self-care (01) ==
LOC: NCHCN 13:21
PROVIDERS: PCP Nurse Practitioner Family; Visit Provider Nurse Practitioner Family
DX: E78.00 Pure hypercholesterolemia, unspecified (principal); I10 Essential (primary) hypertension
CPT/HCPCS: 80048; 80061; 82550; 84450; 84460

== ENCOUNTER 2021-11-14 08:57 | Outpatient (REF) | payer OTHER, SELFPAY ==
[2021-11-14 14:08] LABS: Anion Gap 6.8 mmol/L (3-11); BUN 20 mg/dL (7-18); CO2 29.2 mmol/L (21.0-32.0); CREATININE 1.6 mg/dL (0.70-1.30); Calcium 9.9 mg/dL (8.5-10.1); Chloride 95 mmol/L (98-107); Estimated GFR 43.46 (mL/min/1.73m2); Glucose 105 mg/dL (74-106); Sodium 131 mmol/L (136-145)
== END 2021-11-14 08:58 | disposition home or self-care (01) ==
LOC: NCHCN 08:57
PROVIDERS: PCP Nurse Practitioner Family; Visit Provider Nurse Practitioner Family
DX: I10 Essential (primary) hypertension (principal)
CPT/HCPCS: 80048

== ENCOUNTER 2022-05-21 14:52 | Outpatient (REF) | payer OTHER, SELFPAY ==
[2022-05-21 16:17] LABS: Abs Immature Grans 0.06 10^3/uL (0.0-0.06); Absolute Basophil Count 0.05 10^3/uL (0.0-0.2); Absolute Eosinophil Count 0.23 10^3/uL (0.0-0.7); Absolute Lymphocyte Count 2.27 10^3/uL (1.2-3.4); Absolute Monocyte Count 0.81 10^3/uL (0.1-0.8); Absolute Neutrophil Count 5.88 10^3/uL (1.2-6.7); Basophils % 0.5; Eosinophils % 2.5; HCT 49.4 % (40.0-50.0); HGB 16.9 g/dL (13.5-17.5); Immature Grans % 0.6; Lymphocytes % 24.4; MCH 31.2 pg (27.0-33.0); MCHC 34.2 % (32.0-36.0); MCV 91 fL (80-95); Monocytes % 8.7; Neutrophils % 63.3; Platelet Count 423 10^3/uL (130-400); RBC 5.41 10^6/uL (4.36-5.78); RDW 12.2 % (11.8-14.1); RDW-SD 40.9 fL
[2022-05-21 16:19] LABS: ESR 12 mm/hr (0-20)
[2022-05-21 16:45] LABS: ALT 23 U/L (16-63); AST 25 U/L (15-37); Alkaline Phosphatase 63 U/L (46-116); Anion Gap 8.8 mmol/L (3-11); BUN 16 mg/dL (7-18); Bilirubin, Total 0.5 mg/dL (0.2-1.0); CO2 28.2 mmol/L (21.0-32.0); CREATININE 1.5 mg/dL (0.70-1.30); Calcium 9.5 mg/dL (8.5-10.1); Calculated LDL 149 mg/dL (<100); Chloride 98 mmol/L (98-107); Cholesterol 229 mg/dL (<200); Estimated GFR 46.68 (mL/min/1.73m2); Glucose 106 mg/dL (74-106); HDL Cholesterol 57 mg/dL (40-60); Potassium 5.1 mmol/L (3.5-5.1); Sodium 135 mmol/L (136-145); TSH (W/Ref FT4) 1.05 uIU/mL (0.36-3.74); Total Protein 7.6 g/dL (6.4-8.2); Triglyceride 115 mg/dL (<150)
== END 2022-05-21 14:53 | disposition home or self-care (01) ==
LOC: NCHCN 14:52
PROVIDERS: PCP Nurse Practitioner Family; Visit Provider Nurse Practitioner Family
DX: E78.00 Pure hypercholesterolemia, unspecified (principal); R63.4 Abnormal weight loss; R11.0 Nausea; I10 Essential (primary) hypertension; K30 Functional dyspepsia
CPT/HCPCS: 80053; 80061; 85652; 84443; 85025

== ENCOUNTER 2022-06-11 00:58 | Outpatient (CLI) | payer OTHER, SELFPAY ==
--- NOTE | 2022-06-11 | DI.CT_ITS ---
Exam(s) CT BRAIN NECK CTA EXAM: CT BRAIN NECK CTA CLINICAL HISTORY: BILAT CAROTID ARTERY STENOSIS,I65.23,S/P TCAR. TECHNIQUE: Imaging Protocol: Axial CT angiography was performed with multi-slice acquisition and mu lti-planar and/or 3D reconstructions. CONTRAST MATERIAL: Intravenous: Omnipaque 350 Contrast volume:85 mL COMPARISON: Carotid ultrasound 01/15/2021 FINDINGS: CTA Neck W: Sternotomy wires noted. Aortic arch anatomy: Conventional Anterior circulation: There is an endovascular stent in the left common carotid artery as well as the left internal carotid artery in the neck. There is a tight focal stenosis within the stent, approximately 90 percent (series 4/image 78). Above this level there is mild intra stent narrowing in the upper neck. The left internal carotid artery i s patent in the skull base. Right common carotid artery exhibits minimal disease. Mild calcified and noncalcified plaque seen at the right carotid bifurcation and proximal right internal carotid artery. Minimal stenosis at the pro ximal internal carotid artery on the right side. Some calcification in the right internal carotid art randi in the upper neck is noted but without a significant tight focal stenosis at this level. Posterior circulation: Both vertebral arteries arising conventional fashion off the subclavian arteries. Left vertebral sobia ry is dominant. Some calcification is noted at its origin. Vertebral arteries ascend in the foramen t ransverse area with luminal diameter of 3 millimeters on the left side and 2 millimeters on the right side at the skull base there is some mild calcified plaque in the left vertebral artery but neverthe less the left vertebral artery is a dominant contributor to the formation of the basilar artery. The right vertebral artery is twig like at the skull base. CTA Brain W: Anterior circulation: Both internal carotid arteries are patent in the skull base-carotid canals as well as within the cave rnous sinuses. There is mural calcification in both cavernous sinuses but without a tight focal steno sis in these vessels. There is patency of both supraclinoid internal carotid arteries, without aneury sms. Both A1 segments are patent as are the anterior cerebral arteries and there is no evidence of an eurysm at the level of the anterior communicating artery. Both middle cerebral arteries are patent. No tight stenosis. No aneurysms. Posterior circulation: The basilar artery is relatively thin 2 millimeter lumen. Distally it gives off superior cerebellar a rteries. Posterior cerebral arteries arise off the tip of the basilar artery on the left side. On the right side there is a thinner P1 segment and the right posterior cerebral artery is predominantly fe d by posterior communicating artery on the right side of the [id number]. This is not the case o n the left side. There is no aneurysm of the tip of the basilar artery CT BRAIN: There is no evidence of intracranial hemorrhage, mass effect, or shift of midline structures. There are no extra-axial fluid collections. Ventricles are not enlarged or shifted. There are no ring enh ancing lesions in the brain and no abnormal meningeal enhancement. There is a small nonacute appearing nonhemorrhagic lacunar infarct measuring 6 x 4 millimeters in the white matter adjacent to the anterior aspect of the right lateral ventricle. No evidence of hemorrhage at this level nor elsewhere in the brain. There are no ring enhancing lesio ns in the brain. No abnormal meningeal enhancement. IMPRESSION: 1. There is significant stenosis within the left carotid stent, estimated approximately 90 percent. 2. Only minimal stenosis in the right carotid artery in the neck. 3. Left vertebral artery is dominant Patent intracranial arteries RADIATION DOSE DELIVERED: 2,025.38mGy.cm Total DLP DATA REPOSITORY: All CT scans at this facility are submitted to the National Radiology Data Registry (NRDR) Dose Index Registry (DIR) with the [employer] (ACR). RADIATION OPTIMIZATION: All CT scans at this facility use at least one of these dose optimization te chniques: automated exposure control; mA and/or kV adjustment per patient size (includes targeted exa ms where dose is matched to clinical indication); or iterative reconstruction.
[2022-06-11] MEDS: Omnipaque 350 MG/ML 100 ML BTL IJ (09:48)
[2022-06-11] MEDS: Normal Saline Flush 10 ML SYR IVP (09:50)
== END 2022-06-11 01:18 ==
LOC: DI 00:59
PROVIDERS: PCP Nurse Practitioner Family; Visit Provider Surgery Vascular Surgery
DX: I65.22 Occlusion and stenosis of left carotid artery (principal)
CPT/HCPCS: 70496; 70498; J3490

== ENCOUNTER 2022-08-05 21:23 | Outpatient (REF) | payer OTHER, SELFPAY ==
[2022-08-05 21:41] LABS: Abs Immature Grans 0.07 10^3/uL (0.0-0.06); Absolute Basophil Count 0.07 10^3/uL (0.0-0.2); Absolute Eosinophil Count 0.27 10^3/uL (0.0-0.7); Absolute Monocyte Count 1.34 10^3/uL (0.1-0.8); Basophils % 0.5; ESR 18 mm/hr (0-20); HCT 45.4 % (40.0-50.0); HGB 14.9 g/dL (13.5-17.5); Immature Grans % 0.5; Lymphocytes % 13.5; MCHC 32.8 % (32.0-36.0); MCV 94 fL (80-95); MPV 10.3 fL (8.0-11.0); Monocytes % 9.9; Neutrophils % 73.6; Platelet Count 509 10^3/uL (130-400); RBC 4.81 10^6/uL (4.36-5.78); RDW 12.7 % (11.8-14.1); RDW-SD 44.4 fL; WBC 13.51 10^3/uL (4.4-10.8)
[2022-08-05 21:42] LABS: Absolute Lymphocyte Count 1.82 10^3/uL (1.2-3.4); Absolute Neutrophil Count 9.94 10^3/uL (1.2-6.7)
[2022-08-05 22:02] LABS: C-Reactive Protein 1.64 mg/dL (0.0-0.3); Uric Acid 5.5 mg/dL (3.5-7.2)
[2022-08-07 10:48] LABS: Lyme Ab w Rflx to Lyme Confirm Negative (Negative)
== END 2022-08-05 21:24 | disposition home or self-care (01) ==
LOC: LBN 21:23
PROVIDERS: PCP Nurse Practitioner Family; Visit Provider Nurse Practitioner Family
DX: M25.531 Pain in right wrist (principal); M25.50 Pain in unspecified joint
CPT/HCPCS: 85652; 84550; 85025; 86140; 86618

== ENCOUNTER 2022-08-19 08:22 | Outpatient (REF) | payer OTHER, SELFPAY ==
[2022-08-19 15:53] LABS: Abs Immature Grans 0.17 10^3/uL (0.0-0.06); Absolute Basophil Count 0.07 10^3/uL (0.0-0.2); Absolute Eosinophil Count 0.15 10^3/uL (0.0-0.7); Absolute Lymphocyte Count 2.24 10^3/uL (1.2-3.4); Absolute Monocyte Count 0.87 10^3/uL (0.1-0.8); Absolute Neutrophil Count 7.99 10^3/uL (1.2-6.7); Basophils % 0.6; Eosinophils % 1.3; HGB 14.4 g/dL (13.5-17.5); Immature Grans % 1.5; Lymphocytes % 19.5; MCH 31.2 pg (27.0-33.0); MCHC 33.5 % (32.0-36.0); MCV 93 fL (80-95); MPV 10.2 fL (8.0-11.0); Monocytes % 7.6; Neutrophils % 69.5; Platelet Count 427 10^3/uL (130-400); RBC 4.61 10^6/uL (4.36-5.78); RDW 12.6 % (11.8-14.1); RDW-SD 43.3 fL; WBC 11.49 10^3/uL (4.4-10.8)
== END 2022-08-19 08:23 | disposition home or self-care (01) ==
LOC: NCHCN 08:22
PROVIDERS: PCP Nurse Practitioner Family; Visit Provider Nurse Practitioner Family
DX: M25.531 Pain in right wrist (principal); M25.532 Pain in left wrist
CPT/HCPCS: 85025

== ENCOUNTER 2023-01-20 13:23 | Emergency (ER) | payer OTHER, SELFPAY ==
[2023-01-20] VITALS (102 sets, daily range): BP systolic 90–185; BP diastolic 56–89; PULSE 63–139; RESP 10–23; TEMP 36.7
--- NOTE | 2023-01-20 13:15 | RT.EKG_ITS ---
APPROVED REPORT Exam: Resting ECG Reason for Exam: chest pain Patient Location: E HR:99 bpm ECG Measurements Heart Rate 99 AXIS [place] [id number] P [id number] QRSd 91 QRS 77 QT 340 T [id number] QTc 437 Conclusion Atrial fibrillation...V-rate 79-136, irreg A-activity afib/flutter boarding on tachycardia, slight st elevation V1
[2023-01-20 13:42] LABS: Abs Immature Grans 0.08 10^3/uL (0.0-0.06); Absolute Basophil Count 0.04 10^3/uL (0.0-0.2); Absolute Eosinophil Count 0.32 10^3/uL (0.0-0.7); Absolute Lymphocyte Count 1.89 10^3/uL (1.2-3.4); Absolute Neutrophil Count 9.31 10^3/uL (1.2-6.7); Basophils % 0.3; Eosinophils % 2.5; HCT 42.9 % (40.0-50.0); HGB 14.5 g/dL (13.5-17.5); Immature Grans % 0.6; Lymphocytes % 14.7; MCHC 33.8 % (32.0-36.0); MCV 89 fL (80-95); MPV 9.9 fL (8.0-11.0); Monocytes % 9.6; Neutrophils % 72.3; Platelet Count 426 10^3/uL (130-400); RBC 4.83 10^6/uL (4.36-5.78); RDW 12.6 % (11.8-14.1); RDW-SD 41.8 fL; WBC 12.87 10^3/uL (4.4-10.8)
[2023-01-20 13:43] LABS: Absolute Monocyte Count 1.24 10^3/uL (0.1-0.8)
--- NOTE | 2023-01-20 13:43 | ED.GENADUL_ITS ---
Discharge Plan Disposition Patient Disposition: Transfer-Acute Inpatient Care Specific Acute Inpt Facility: [facility] Discharge Details Clinical Impression: Atrial fibrillation Primary Care Provider: Tara Croft ED Provider: Ofelia Silverio Home Meds and New Rx's Prescriptions: No Action lisinopril 20 MG tablet 20 mg PO DAILY aspirin [Aspirin Low-Strength] 81 MG tablet,chewable 81 mg PO DAILY fenofibrate 54 MG tablet 54 mg PO DAILY metoprolol tartrate 25 mg Tablet 12.5 mg PO DAILY mineral oil [Fleet Mineral Oil] enema 118 ml AZ ONCE Qty: 135 2RF lidocaine 5 % adhesive patch,medicated 1 patch TP DAILY PRN (Reason: back pain) Qty: 15 0RF Rx Instructions: leave on most painful area for 12 hrs vitamin P63-ambkk acid 500-400 mcg Tablet 1 tab PO DAILY clopidogrel 75 mg Tablet 75 mg PO QDAY cilostazol 100 mg Tablet 100 mg PO BID tamsulosin 0.4 mg Capsule 0.8 mg PO BID Rx Instructions: x 7 days Discharge Data Discharge Date/Time-TO BE ENTERED AT DEPARTURE: 01/20/23 18:44 Medical Decision Making <Beba Roy NP - Last Filed: 01/21/23 08:57> 67-year-old male status post TCAR on Friday at [facility] on the left side presents to the ER with a chief complaint of tachycardia, nosebleeds and GERD type symptoms which began around 1030 this morning prior to arrival. Patient started on a new medication called cilostazol 100 mg twice daily which he attributes to his symptoms. He does have sutures and some ecchymosis noted to left side of his chest. His heart rate was 116 atrial fibrillation prior to arrival per EMS they did give him 5 mg of metoprolol IV, currently his heart rate is 117. Half-life of Pletal is 11 to 13 hours, work-up ordered including cardiac troponins, PT PTT, chest x-ray will consult with [facility]. White blood cells 12.87, platelets 426, PT/INR within normal limits, sodium 131, BUN 24 creatinine 1.7 glucose 154 magnesium 1.7 initial troponin within normal limits. 1440: Heart rate 153, 5 mg metoprolol IV ordered. 1450: [facility] transfer center contacted, Will Fax EKG and speak with Cardiology. 1505: Payam PHILLIP with Cardiology, he recommends transitioning to oral rate control he does recommend anticoagulation with DOAC after Vascular surgery consult. will page Vascular surgery. 1523: Spoke with Dr. Rosales with Vascular Surgery at [facility] who recommends admission for observation and monitoring for the next 24 hours and recheck of the hematocrit tomorrow she does agree to starting anticoagulation and keeping patient on Plavix and aspirin. She does agree to a DOAC. Transfer center to call me back. 1545: [facility] notified me that vascular will admit the patient to a bed Accepting physician Dr. Bryan. Awaiting callback from bed management with bed assignment. At this time heart rate is 87, blood pressure stable. Will order Eliquis at the recommendation of cardiology and vascular surgery at [facility]. Discussed plan of care with patient, he is expressing his frustrations and is not wanting to be transferred to [facility] by ambulance however I did recommend the strongly and did explain that it would be AGAINST MEDICAL ADVICE if he did not, he verbalized understanding is in agreement to be transferred by ambulance. Called to the bedside by staff software engineer patient is very diaphoretic feeling lightheaded, blood pressure is 90/56, I did note that he is now in normal sinus rhythm. Repeat EKG is being performed at this time. Normal saline bolus is being hung. Care is to be handed off to oncoming provider MARIA E Pyle pending transfer. She was updated on patient condition. Repeat troponin being obtained at this time. Blood pressure is 99/53. Prior to my leaving blood pressure is improved to 140 plan is to transfer to [facility] awaiting bed placement. Medical Records Medical records reviewed: Yes I reviewed the patient's medical records. Lab Data Lab results reviewed: Yes I reviewed the patient's lab results. Labs: Laboratory Tests Range/Units 01/20/23 01/20/23 01/20/23 13:32 13:32 13:32 WBC (4.4-10.8) 10^3/uL 12.87 H RBC (4.36-5.78) 10^6/uL 4.83 Hgb (13.5-17.5) g/dL 14.5 Hct (40.0-50.0) % 42.9 MCV (80-95) fL 89 MCH (27.0-33.0) pg 30.0 MCHC (32.0-36.0) % 33.8 RDW (11.8-14.1) % 12.6 Plt Count (130-400) 10^3/uL 426 H MPV (8.0-11.0) fL 9.9 Immature Gran % 0.6 Neutrophils % 72.3 Lymphocytes % 14.7 Monocytes % 9.6 Eosinophils % 2.5 Basophils % 0.3 Nucleated RBC % (0.0-0.3) % 0.0 Absolute Neutrophils (1.2-6.7) 10^3/uL 9.31 H Absolute Lymphocytes (1.2-3.4) 10^3/uL 1.89 Absolute Monocytes (0.1-0.8) 10^3/uL 1.24 H Absolute Eosinophils (0.0-0.7) 10^3/uL 0.32 Absolute Basophils (0.0-0.2) 10^3/uL 0.04 PT (9.3-11.0) sec 10.3 INR (0.9-1.1) 1.0 APTT (21.5-31.9) sec 29.4 Sodium (136-145) mmol/L 131 L Potassium (3.5-5.1) mmol/L 3.8 Chloride (98-107) mmol/L 95 L Carbon Dioxide (21.0-32.0) mmol/L 26.9 Anion Gap (3-11) mmol/L 9.1 BUN (7-18) mg/dL 24 H Creatinine (0.70-1.30) mg/dL 1.7 H Est GFR (CKD-EPI 2020) (mL/min/1.73m2) 43.64 Glucose (74-106) mg/dL 154 H Calcium (8.5-10.1) mg/dL 9.7 Magnesium (1.8-2.4) mg/dL 1.7 L Total Bilirubin (0.2-1.0) mg/dL 0.4 AST (15-37) U/L 17 ALT (16-63) U/L 21 Alkaline Phosphatase (46-116) U/L 58 Troponin I (<or=60) ng/L < 50 Total Protein (6.4-8.2) g/dL 8.1 Albumin (3.4-5.0) g/dL 4.0 <MARIA E Angel - Last Filed: 01/24/23 09:14> 67-year-old male status post TCAR on Friday at [facility] on the left side presents to the ER with a chief complaint of tachycardia, nosebleeds and GERD type symptoms which began around 1030 this morning prior to arrival. Patient started on a new medication called cilostazol 100 mg twice daily which he attributes to his symptoms. He does have sutures and some ecchymosis noted to left side of his chest. His heart rate was 116 atrial fibrillation prior to arrival per EMS they did give him 5 mg of metoprolol IV, currently his heart rate is 117. Half-life of Pletal is 11 to 13 hours, work-up ordered including cardiac troponins, PT PTT, chest x-ray will consult with [facility]. White blood cells 12.87, platelets 426, PT/INR within normal limits, sodium 131, BUN 24 creatinine 1.7 glucose 154 magnesium 1.7 initial troponin within normal limits. 1440: Heart rate 153, 5 mg metoprolol IV ordered. 1450: [facility] transfer center contacted, Will Fax EKG and speak with Cardiology. 1505: Payam PHILLIP with Cardiology, he recommends transitioning to oral rate control he does recommend anticoagulation with DOAC after Vascular surgery consult. will page Vascular surgery. 1523: Spoke with Dr. Rosales with Vascular Surgery at [facility] who recommends admission for observation and monitoring for the next 24 hours and recheck of the hematocrit tomorrow she does agree to starting anticoagulation and keeping patient on Plavix and aspirin. She does agree to a DOAC. Transfer center to call me back. 1545: [facility] notified me that vascular will admit the patient to a bed Accepting physician Dr. Bryan. Awaiting callback from bed management with bed assignment. At this time heart rate is 87, blood pressure stable. Will order Eliquis at the recommendation of cardiology and vascular surgery at [facility]. Discussed plan of care with patient, he is expressing his frustrations and is not wanting to be transferred to [facility] by ambulance however I did recommend the strongly and did explain that it would be AGAINST MEDICAL ADVICE if he did not, he verbalized understanding is in agreement to be transferred by ambulance. Called to the bedside by staff software engineer patient is very diaphoretic feeling lightheaded, blood pressure is 90/56, I did note that he is now in normal sinus rhythm. Repeat EKG is being performed at this time. Normal saline bolus is being hung. Care is to be handed off to oncoming provider MARIA E Pyle pending transfer. She was updated on patient condition. Repeat troponin being obtained at this time. Blood pressure is 99/53. Prior to my leaving blood pressure is improved to 140 plan is to transfer to [facility] awaiting bed placement. [place]: Care transitioned tto myself from Beba Roy NP. Patient was transferred to [facility], as was apolonia morales, prior to me needing to interviene on the patient. The BP which had briefly been noted to be low by GWENDOLYN Roy inmprroved at the time of transfer. HPI <Beba Roy NP - Last Filed: 01/21/23 08:57> General Mode of arrival: EMS . Date/Time Provider Initiated Documentation: 01/20/23 13:33 . Limitations to Documentation: no limitations . Information obtained by: patient, EMS, RN notes reviewed and old records reviewed . HPI Narrative: 67-year-old male status post TCAR on Friday at [facility] on the left side presents to the ER with a chief complaint of tachycardia, nosebleeds and GERD type symptoms which began around 1030 this morning prior to arrival. Patient started on a new medication called cilostazol 100 mg twice daily which he attributes to his symptoms. He does have sutures and some ecchymosis noted to left side of his chest. His heart rate was 116 atrial fibrillation prior to arrival per EMS they did give him 5 mg of metoprolol IV, currently his heart rate is 117. Related Data Home Medications Medication Instructions Recorded Confirmed aspirin 81 mg chewable tablet 81 mg PO DAILY 12/08/15 01/20/23 (Aspirin Low-Strength) fenofibrate 54 mg tablet 54 mg PO DAILY 12/08/15 01/20/23 lisinopril 20 mg tablet 20 mg PO DAILY 12/08/15 01/20/23 vitamin B12 500 mcg-folic acid 400 1 tab PO DAILY 07/06/18 07/17/18 mcg tablet lidocaine 5 % topical patch 1 patch topical DAILY PRN back 07/17/18 pain #15 ea metoprolol tartrate 25 mg tablet 12.5 mg PO DAILY 07/17/18 07/17/18 mineral oil (Fleet Mineral Oil 118 ml AZ ONCE #135 mL 07/17/18 enema) cilostazol 100 mg tablet 100 mg PO BID 01/20/23 01/20/23 clopidogrel 75 mg tablet 75 mg PO QDAY 01/20/23 01/20/23 tamsulosin 0.4 mg capsule 0.8 mg PO BID 01/20/23 01/20/23 Previous Rx's Medication Instructions Recorded lidocaine 5 % topical patch 1 patch topical DAILY PRN back 07/17/18 pain #15 ea mineral oil (Fleet Mineral Oil 118 ml AZ ONCE #135 mL 07/17/18 enema) Allergies Allergy/AdvReac Type Severity Reaction Status Date / Time lovastatin Allergy Other (See Unverified 07/06/18 09:58 Comment) morphine Allergy aggitation Unverified 07/06/18 09:57 General Stated Complaint: Arrhythmia ALEX: 3 Review of Systems <Beba Roy NP - Last Filed: 01/21/23 08:57> All systems reviewed & are unremarkable except as noted in HPI and below Cardiovascular Cardiovascular: Reports palpitations Gastrointestinal Gastrointestinal: Reports excessive flatus, Reports dyspepsia, Reports heartburn and Reports hematemesis Endocrine Endocrine: Reports palpitations PFSH <Beba Roy NP - Last Filed: 01/21/23 08:57> All Active Problems (Updated 01/20/23 @ 15:52 by Beba Roy NP) Atrial fibrillation (Chronic) Coronary artery disease (Chronic) Social History Smoking/Tobacco Use Status: Current every day Tobacco Type: cigarettes Smoking risk assessment performed?: Yes Drug use: Daily Do you feel safe in your relationship?: Yes Exam <Beba Roy NP - Last Filed: 01/21/23 08:57> Narrative Exam Narrative: Constitutional: Alert and oriented x3. Appears stated age. Normal body habitus. Head: Normocephalic, no trauma. Eyes: Pupils PERRL, Red reflex noted, EOM's intact. Eyelids symmetrical without lesions, discharge, or swelling. ENT: Bilateral TM's WNL, External ear normal to inspection, no mastoid TTP, swelling, or erythema, Nasal turbinates WNL, no nasal discharge. Normal dentition, Posterior pharynx WNL, no exudate. Chest: RRR, Normal S1, S2, distal pulses intact. Ecchymosis noted to the left side of the chest, 2 suturable incisions noted no surrounding redness or swelling. Resp: Lungs clear to auscultation bilaterally, no wheezes, rales, or rhonchi. Abdomen: Soft, non-distended, Normoactive bowel sounds all 4 quads. Musculoskeletal: Normal gait, 5/5 strength to all four extremities. Skin: No suspicious rashes or lesions. Capillary refill less than 2 sec. Neurologic: Cranial nerves II-XII intact. Alert and oriented x 3. Motor: No de ficits noted. Sensory: Intact bilaterally all 4 extremities. Reflexes: DTR's intact bilaterally.. Hematologic/Lymphatic: No ecchymosis, no lymphadenopathy. Course <Beba Roy NP - Last Filed: 01/21/23 08:57> Vital Signs Vital signs: Vital Signs Temperature 36.7 C 01/20/23 13:24 Pulse 118 H 01/20/23 13:24 Respiratory Rate 19 01/20/23 13:24 Blood Pressure 181/76 H 01/20/23 13:24 Temperature 36.7 C 01/20/23 13:24 Pulse 118 H 01/20/23 13:24 Respiratory Rate 19 01/20/23 13:24 Blood Pressure 181/76 H 01/20/23 13:24 Blood Pressure Position Sitting 01/20/23 13:24 Oxygen Delivery Method Room Air 01/20/23 13:24 Oxygen Flow Rate 0 01/20/23 13:24 Pain Level 2 01/20/23 13:24 Critical Care Time <Beba Roy NP - Last Filed: 01/21/23 08:57> Critical Care Time Critical Care Time: Yes Total Critical Care Time: 45 Attestation: I spent greater than 35 minutes addressing this patient's acute life threatening illness. This time was spent engaged in actions directly related to the patien t's care. Failure to initiate these interventions would have likely resulted in clinically significant or life threatening deterioration in the patients condition. Sign Out <GWENDOLYN Zhou Last Filed: 01/21/23 08:57> Sign Out Data: Sign Out Comment: Pending transfer to [facility] awaiting bed assignment. At the time of this dictation patient's blood pressure is somewhat soft 99/53, patient became lightheaded and diaphoretic. Repeat EKG being done now repeat troponin normal saline bolus hung. Last updated by Beba Roy NP at 01/20/23 16:38
--- NOTE | 2023-01-20 13:45 | DI.RAD_ITS ---
Exam(s) XR PORTABLE CHEST AP EXAM: XR PORTABLE CHEST AP CLINICAL HISTORY: Chest Pain TECHNIQUE: 2D digital imaging was performed. COMPARISON: CT CT CHEST WO from 10/25/2021 FINDINGS: Leads overlie the chest. LUNGS: Clear. No pleural abnormality seen. HEART: Normal size. Status post CABG. AORTA: Normal diameter. BONES: Sternal wires. Old right rib fractures. Soft tissues: Unremarkable. IMPRESSION: No acute findings. DATA REPOSITORY: RADIATION DOSE DELIVERED:
[2023-01-20 13:56] LABS: PTT Activated 29.4 sec (21.5-31.9); Prothrombin Time 10.3 sec (9.3-11.0)
[2023-01-20 14:18] LABS: ALT 21 U/L (16-63); AST 17 U/L (15-37); Alkaline Phosphatase 58 U/L (46-116); Anion Gap 9.1 mmol/L (3-11); BUN 24 mg/dL (7-18); Bilirubin, Total 0.4 mg/dL (0.2-1.0); CO2 26.9 mmol/L (21.0-32.0); CREATININE 1.7 mg/dL (0.70-1.30); Calcium 9.7 mg/dL (8.5-10.1); Chloride 95 mmol/L (98-107); Estimated GFR 43.64 (mL/min/1.73m2); Glucose 154 mg/dL (74-106); Magnesium 1.7 mg/dL (1.8-2.4); Potassium 3.8 mmol/L (3.5-5.1); Sodium 131 mmol/L (136-145); Total Protein 8.1 g/dL (6.4-8.2); Troponin I < 50 ng/L (<or=60)
[2023-01-20] MEDS: Metoprolol 5 MG/5 ML VIAL IVP (14:48)
--- NOTE | 2023-01-20 16:30 | RT.EKG_ITS ---
APPROVED REPORT Exam: Resting ECG Reason for Exam: syncope Patient Location: E HR:71 bpm ECG Measurements Heart Rate 71 AXIS AZ 192 P 46 QRSd 90 QRS 72 QT 390 T 114 QTc 424 Conclusion Incomplete analysis due to missing data in precordial lead(s) Sinus rhythm...normal P axis, V-rate 60- 99 Probable left atrial enlargement...P >50mS, <-0.10mV V1 Nonspecific T abnormalities, lateral leads...T <-0.10mV, I aVL V5 V6
[2023-01-20] MEDS: Normal Saline 1,000 ML 1000 ML IV (16:40)
--- NOTE | 2023-01-20 16:40 | NUR.NOTE ---
pt had near syncopal episode while sitting on stretcher, pt did not fall but became diaphoretic and confused. BP low for a period of time. PUBLIC HEALTH MICROBIOLOGIST Manuela called to bedside and gave verbal order for saline bolus and repeat ekg.
[2023-01-20 17:13] LABS: Troponin I 62 ng/L (<or=60)
[2023-01-20] MEDS: Apixaban 5 MG TAB PO (17:44)
--- NOTE | 2023-01-21 16:43 | NUR.NOTE ---
Nursing Note: Accessed patient chart to determine how many EKG orders were in the chart from the ED. There was an outstanding EKG in ordered status. There are no EKG's in the [facility] system that are outstanding. EKG order was deleted.
== END 2023-01-20 18:44 | disposition short-term general hospital (02) ==
PROVIDERS: Registered Nurse Emergency; Emergency Provider Physician Assistant; PCP Nurse Practitioner Family
DX: I48.91 Unspecified atrial fibrillation (principal); S20.212A Contusion of left front wall of thorax, initial encounter; I25.10 Atherosclerotic heart disease of native coronary artery without angina pectoris; Z79.82 Long term (current) use of aspirin; X58.XXXA Exposure to other specified factors, initial encounter
CPT/HCPCS: 80053; 93005; 96361; 96374; 99291; 71045; 83735; 84484; 85025; 85610; 85730; 93010

== ENCOUNTER 2023-01-27 13:24 | Outpatient (CLI) | payer OTHER, SELFPAY ==
--- NOTE | 2023-01-27 | DI.CT_ITS ---
Exam(s) CT CHEST PE CTA EXAM: CT CHEST PE CTA CLINICAL HISTORY: SOB, R06.02; NEW DX A-FIB. TECHNIQUE: Imaging Protocol: CT angiography of the chest was performed using pulmonary embolus juan col. Multi planar reconstructions were performed. CONTRAST MATERIAL: Intravenous: Omnipaque 350 Contrast volume: 100 cc COMPARISON: CT CT BRAIN NECK CTA from 06/11/2022 FINDINGS: CHEST: PULMONARY ARTERIES: There are no intraluminal filling defects to suggest acute pulmonary emboli. LUNGS: There are no infiltrates nor evidence of pulmonary infarction.. There are no pleural effusions . MEDIASTINUM: There is no hilar nor mediastinal adenopathy. CARDIAC: Sternotomy wires. Heart size normal. Coronary artery calcification noted. There is no raúl ft of the interventricular septum. Caliber thoracic aorta is within normal limits and there is no ev idence of aortic dissection. No pericardial effusion. PARTIALLY VISUALIZED UPPERMOST ABDOMEN: No obvious findings OSSEOUS: Do not me why yours. Nonunion sternum. There is a healed fracture of the right 6th and 7th ribs. No acute rib fractures identified.. IMPRESSION: 1. No evidence of acute pulmonary emboli. No evidence of pulmonary infarction.No pleural effusions. No infiltrates. 2. No evidence of aortic dissection. No pericardial effusion. RADIATION DOSE DELIVERED: 404.49mGy.cm Total DLP DATA REPOSITORY: All CT scans at this facility are submitted to the National Radiology Data Registry (NRDR) Dose Index Registry (DIR) with the [employer] (ACR). RADIATION OPTIMIZATION: All CT scans at this facility use at least one of these dose optimization te chniques: automated exposure control; mA and/or kV adjustment per patient size (includes targeted exa ms where dose is matched to clinical indication); or iterative reconstruction.
[2023-01-27] MEDS: Normal Saline - Diluent 50 ML VIAL IJ (14:33)
[2023-01-27] MEDS: Omnipaque 350 MG/ML 500 ML BTL-Imaging package IJ (14:35)
[2023-01-27] MEDS: Normal Saline Flush 10 ML SYR IVP (14:36)
== END 2023-01-27 13:44 ==
LOC: DI 13:25
PROVIDERS: PCP Nurse Practitioner Family; Visit Provider Nurse Practitioner Family
DX: R06.02 Shortness of breath (principal); I48.91 Unspecified atrial fibrillation
CPT/HCPCS: 71275

== ENCOUNTER 2023-05-14 07:31 | Outpatient (REF) | payer OTHER, SELFPAY ==
[2023-05-14 17:04] LABS: Calculated LDL 155 mg/dL (<100); Cholesterol 228 mg/dL (<200); HDL Cholesterol 54 mg/dL (40-60); Triglyceride 96 mg/dL (<150)
== END 2023-05-14 07:32 | disposition home or self-care (01) ==
LOC: NCHCN 07:31
PROVIDERS: PCP Nurse Practitioner Family; Visit Provider Nurse Practitioner Family
DX: E78.00 Pure hypercholesterolemia, unspecified (principal)
CPT/HCPCS: 80061

== ENCOUNTER 2024-06-15 14:52 | Outpatient (REF) | payer OTHER, SELFPAY ==
[2024-06-15 18:07] LABS: ALT 25 U/L (16-63); AST 27 U/L (15-37); Albumin 4.4 g/dL (3.4-5.0); Alkaline Phosphatase 66 U/L (46-116); Anion Gap 9.3 mmol/L (3-11); BUN 19 mg/dL (7-18); Bilirubin, Total 0.48 mg/dL (0.2-1.0); CO2 29.7 mmol/L (21.0-32.0); CREATININE 1.7 mg/dL (0.70-1.30); Calculated LDL 122 mg/dL (<100); Chloride 95 mmol/L (98-107); Cholesterol 202 mg/dL (<200); Glucose 101 mg/dL (74-106); HDL Cholesterol 60 mg/dL (40-60); Potassium 5.2 mmol/L (3.5-5.1); Sodium 134 mmol/L (136-145); Total Protein 7.7 g/dL (6.4-8.2); Triglyceride 100 mg/dL (<150)
[2024-06-15 18:47] LABS: Hemoglobin A1C 5.7 % (<5.7)
== END 2024-06-15 14:53 | disposition home or self-care (01) ==
LOC: NCHCN 14:52
PROVIDERS: PCP Nurse Practitioner Family; Visit Provider Family Medicine
DX: I10 Essential (primary) hypertension (principal)
CPT/HCPCS: 80053; 80061; 83036

== ENCOUNTER 2024-12-23 15:52 | Outpatient (REF) | payer MEDICARE, SELFPAY ==
[2024-12-23 15:43] LABS: Abs Immature Grans 0.08 10^3/uL (0.0-0.06); Absolute Basophil Count 0.07 10^3/uL (0.0-0.2); Absolute Eosinophil Count 0.22 10^3/uL (0.0-0.7); Absolute Lymphocyte Count 2.26 10^3/uL (1.2-3.4); Absolute Monocyte Count 0.89 10^3/uL (0.1-0.8); Basophils % 0.6 %; Immature Grans % 0.7 %; Lymphocytes % 20.6 %; MCH 30.6 pg (27.0-33.0); MCHC 32.7 % (32.0-36.0); MCV 94 fL (80-95); MPV 10.1 fL (8.0-11.0); Monocytes % 8.1 %; Platelet Count 431 10^3/uL (130-400); RBC 5.56 10^6/uL (4.36-5.78); RDW 12.1 % (11.8-14.1); RDW-SD 42.5 fL; WBC 10.95 10^3/uL (4.4-10.8)
[2024-12-23 15:47] LABS: Absolute Neutrophil Count 7.45 10^3/uL (1.2-6.7)
[2024-12-23 16:01] LABS: ALT 23 U/L (16-63); AST 23 U/L (15-37); Albumin 4.3 g/dL (3.4-5.0); Alkaline Phosphatase 64 U/L (46-116); Anion Gap 6.6 mmol/L (3-11); BUN 21 mg/dL (7-18); CO2 29.4 mmol/L (21.0-32.0); CREATININE 1.5 mg/dL (0.70-1.30); Calculated LDL 120 mg/dL (<100); Chloride 97 mmol/L (98-107); Cholesterol 205 mg/dL (<200); Estimated GFR 50.08 (mL/min/1.73m2); Glucose 110 mg/dL (74-106); HDL Cholesterol 64 mg/dL (40-60); Magnesium 1.8 mg/dL (1.8-2.4); Potassium 5.8 mmol/L (3.5-5.1); Sodium 133 mmol/L (136-145); Total Protein 7.8 g/dL (6.4-8.2); Triglyceride 109 mg/dL (<150)
[2024-12-23 23:08] LABS: PSA, Screening 0.6 ng/mL (<=4.5)
== END 2024-12-23 15:53 | disposition home or self-care (01) ==
LOC: NCHCN 15:52
PROVIDERS: Visit Provider Family Medicine
DX: Z51.81 Encounter for therapeutic drug level monitoring (principal); I10 Essential (primary) hypertension; E78.00 Pure hypercholesterolemia, unspecified; Z12.5 Encounter for screening for malignant neoplasm of prostate
CPT/HCPCS: 80053; 80061; 84153; 83735; 85025

== ENCOUNTER 2025-01-10 00:49 | Outpatient (CLI) | payer MEDICARE, SELFPAY ==
--- NOTE | 2025-01-10 | DI.CTLCSR_ITS ---
Exam(s) CT CHEST LUNG CANCER SCREEN EXAM: CT CHEST LUNG CANCER SCREEN CLINICAL HISTORY: F17.210 Nicotine dependence, cigarettes, uncomplicated TECHNIQUE: Imaging Protocol: Axial computed tomography images with coronal and sagittal reformatted images were created and reviewed. Low dose screening protocol. COMPARISON: CT CHEST WITH CONTRAST from 11/22/2015 CR XR PORTABLE CHEST AP from 01/20/[address] CHEST PE CTA from 01/27/2023 FINDINGS: Tracheobronchial tree: No bronchiectasis or mucus plugging. Mediastinum and Janice: No dominant adenopathy or fluid collection. Pulmonary parenchyma: No consolidation or dominant measurable mass. Mild emphysematous changes. No si gnificant interstitial changes. Lung Nodules: Stable 7 millimeter nodule at the anterior left lower lobe. Two other tiny nodules are noted posteriorly in the left lower which are unchanged. Pleura: No effusion. No pneumothorax. Heart: The heart is not dilated. Severe coronary artery calcifications are seen. Status post CABG pe er no pericardial effusion. Aorta: Thoracic aorta non-dilated. Upper abdomen: Unremarkable. Bones: Sternal wires. Severe degenerative changes in the thoracic spine. Soft Tissues: Unremarkable. IMPRESSION: No suspicious pulmonary nodules. Lung RADS Cat 2 - Benign Appearance / Behavior: Nodules with a very low likelihood of becoming a clin ically active cancer due to size or lack of growth Lung-RADS 1.0 CATEGORIES: Category 0 - Prior chest CT exam(s) being located for comparison. Category 1 - Annual screening in 12 months. No nodules or definitely benign nodules. Category 2 - Annual screening in 12 months. Benign appearance. Nodules with low likelihood of becomin g active cancer. Category 3 - 6-month follow-up. Probably benign. Short-term follow-up suggested. Nodules with low lik elihood of becoming active cancer. Category 4A - 3-month follow-up and CT/PET if >8 mm in size. Suspicious finding. Findings which requi re additional testing. Category 4B - Findings which require additional testing and tissue sampling. Category 4X - Category 3 or 4 nodules with additional features or imaging findings that increases the suspicion of malignancy. Modifier S- Potentially clinically significant findings (non lung cancer) RADIATION DOSE DELIVERED: !Error Total DLP DATA REPOSITORY: All CT scans at this facility are submitted to the National Radiology Data Registry (NRDR) Dose Index Registry (DIR) with the [employer] (ACR). RADIATION OPTIMIZATION: All CT scans at this facility use at least one of these dose optimization te chniques: automated exposure control; mA and/or kV adjustment per patient size (includes targeted exa ms where dose is matched to clinical indication); or iterative reconstruction.
--- NOTE | 2025-01-10 | DI.US_ITS ---
Exam(s) US AAA SCREENING EXAM: US AAA SCREENING CLINICAL HISTORY: F17.200 Nicotine dependence,screening for aaa COMPARISON: CT CT ABDOMEN PELVIS W from 07/17/2018 FINDINGS: Abdominal Aorta: Proximal: 2.2 cm Mid: 1.8 cm Distal: 2.0 cm Iliacs: Right: 1.2 cm Left: 1 cm The vessels are heavily calcified. IMPRESSION: No evidence of abdominal aortic aneurysm. DATA REPOSITORY:
== END 2025-01-10 01:09 ==
PROVIDERS: PCP Family Medicine; Visit Provider Family Medicine
DX: F17.210 Nicotine dependence, cigarettes, uncomplicated (principal); Z13.6 Encounter for screening for cardiovascular disorders; Z12.2 Encounter for screening for malignant neoplasm of respiratory organs
CPT/HCPCS: 71271; 76706

== ENCOUNTER 2025-07-05 11:51 | Outpatient (REF) | payer MEDICARE, SELFPAY ==
[2025-07-05 15:40] LABS: Hemoglobin A1C 5.7 % (<5.7)
[2025-07-05 18:46] LABS: ALT 24 U/L (16-63); AST 27 U/L (15-37); Albumin 3.6 g/dL (3.4-5.0); Alkaline Phosphatase 81 U/L (46-116); Anion Gap 6.3 mmol/L (3-11); BUN 18 mg/dL (7-18); Bilirubin, Total 0.5 mg/dL (0.2-1.0); CO2 29.7 mmol/L (21.0-32.0); Calcium 9.3 mg/dL (8.5-10.1); Calculated LDL 163 mg/dL (<100); Chloride 98 mmol/L (98-107); Cholesterol 248 mg/dL (<200); Estimated GFR 54.07 (mL/min/1.73m2); Glucose 106 mg/dL (74-106); HDL Cholesterol 63 mg/dL (>or=40); Potassium 5.0 mmol/L (3.5-5.1); Sodium 134 mmol/L (136-145); TSH 1.12 uIU/mL (0.36-3.74); Total Protein 7.4 g/dL (6.4-8.2); Triglyceride 110 mg/dL (<150); Vitamin B12 485 pg/mL (193-986)
== END 2025-07-05 11:52 | disposition home or self-care (01) ==
LOC: NCHCN 11:51
PROVIDERS: PCP Family Medicine; Visit Provider Family Medicine
DX: I10 Essential (primary) hypertension (principal); E78.00 Pure hypercholesterolemia, unspecified; G62.9 Polyneuropathy, unspecified
CPT/HCPCS: 80053; 80061; 82607; 83036; 84443